=== PATIENT | male | born 1980 | race Two or more races ===

== ENCOUNTER 2019-08-31 21:10 | Emergency (ER) | payer SELFPAY ==
[2019-08-31 21:18] VITALS: BP 134/83
[2019-08-31] MEDS ORDERED: HYDROcod/ACET 5/325 Prepack 4 PO STA (21:28)
--- NOTE | 2019-08-31 21:30 | ED Physician Documentation ---
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 Is scheduled for surgery upcoming, but pain is worse over the last few nights, a burning pain rating from the carpal tunnel up the arm a bit. He is been using splints and elevation as well as NSAIDs without relief.) Review of Systems Constitutional: reports: Reviewed and negative Cardiac: reports: Reviewed and negative Respiratory: reports: Reviewed and negative PD PAST MEDICAL HISTORY - Past Medical History Past Medical History: No Cardiovascular: None Respiratory: None Neuro: None Endocrine/Autoimmune: None GI: None : None HEENT: None Psych: None Musculoskeletal: None Derm: None - Past Surgical History Past Surgical History: No - Present Medications Home Medications: Ambulatory Orders Medication Instructions Recorded Confirmed Hydrocodone/Acetaminophen 1 - 2 each PO Q6H PRN #10 tablet 08/31/19 [Hydrocodon-Acetaminophen 5-325] predniSONE [Deltasone] 20 mg PO DAILY 5 Days #5 tablet 08/31/19 - Allergies Allergies/Adverse Reactions: Allergies Allergy/AdvReac Type Severity Reaction Status Date / Time amoxicillin Allergy Rash Verified 08/31/19 21:17 tramadol [From Ultram] Allergy Edema Verified 08/31/19 21:17 - Social History Does the pt smoke?: No Smoking Status: Never smoker Does the pt drink ETOH?: Yes Does the pt have substance abuse?: No - Immunizations Immunizations are current?: Yes - POLST Patient has POLST: No PD ED PE NORMAL - Vitals Vital signs reviewed: Yes - General General: Alert and oriented X 3, No acute distress - Extremities Extremities: Other (Properly tender over both carpal tunnels, tingling in the first through third 6 digits of both hands. No tenderness of the forearm or epicondyles bilaterally.) - Neuro Neuro: Alert and oriented X 3, Normal speech Results - Vitals Vitals: Vital Signs - 24 hr 08/31/19 21:14 Temperature 36.8 C Heart Rate 80 Respiratory 17 Rate Blood Pressure 134/83 H O2 Saturation 98 Oxygen O2 Source Room air Departure - Departure Disposition: 01 Home, Self Care Clinical Impression: Carpal tunnel syndrome on both sides Condition: Good Record reviewed to determine appropriate education?: Yes Instructions: ED Carpal Tunnel Prescriptions: Hydrocodone/Acetaminophen [Hydrocodon-Acetaminophen 5-325] 1 - 2 each PO Q6H PRN #10 tablet PRN Reason: pain predniSONE [Deltasone] 20 mg PO DAILY 5 Days #5 tablet Comments: Follow-up with your surgeon on return home as scheduled. Return for new or worsening symptoms. Do not drink or drive while taking narcotic pain medication. Note that many narcotic pain relievers also contain Tylenol/acetaminophen. Please ensure that your total dose of acetaminophen from all sources does not exceed 3 g (3000 mg) per day. You may get constipated while on this medication. Take a stool softener such as Colace twice a day while you are on it. Also add an oisn-yyy-khnodys laxative such as senna or MiraLAX on any day that you do not have a bowel movement. If you received a narcotic pain medication or sedative while in the emergency department, do not drive for the next 24 hours.
== END 2019-08-31 21:45 | disposition home or self-care (01) ==
LOC: ED 21:10
DX: G56.03 Carpal tunnel syndrome, bilateral upper limbs (principal)
CPT/HCPCS: 99282; 99283